=== PATIENT | female | born 1980 | race Caucasian/White ===

== ENCOUNTER 2019-06-04 11:42 | Emergency (ER) | payer OTHER ==
[~2019-06-04] VITALS: Ht 160 cm; Wt 66.0 kg
[2019-06-04] MEDS ORDERED: Dayquil PO (11:50)
--- NOTE | 2019-06-04 12:33 | REP ---
Clinical: Bronchitis . Comparison: None . Technique: PA and lateral. Findings: The mediastinum and cardiac silhouette are normal. The lung li are clear and without acute consolidation, effusion, or pneumothorax. The skeletal structures are intact and normal. Impression: 1. No acute cardiopulmonary process. Electronically Signed by Bill Bradshaw MD 06/04/2019 12:24 P
[2019-06-04 12:48] VITALS: BP 144/95
== END 2019-06-04 13:07 | disposition home or self-care (01) ==
LOC: M ED 11:42
DX: J02.9 Acute pharyngitis, unspecified (principal); J01.90 Acute sinusitis, unspecified

== ENCOUNTER → 2023-05-08 | Outpatient (CLI) | payer OTHER ==
[~2023-05-08] MED LIST: Dayquil PO
== END ==
LOC: M WHC 11:21
PROVIDERS: ATTEND Nurse Practitioner Primary Care
DX: Z12.31 Encounter for screening mammogram for malignant neoplasm of breast (principal)